=== PATIENT | male | born 1945 | race Caucasian/White ===

== ENCOUNTER 2017-01-30 14:42 | Emergency (ER) | payer OTHER ==
[~2017-01-30] VITALS: Ht 170.2 cm; Wt 92.0 kg
[2017-01-30 14:44] VITALS: BP 169/112; PULSE 87; RESP 16; TEMP 97.6; O2SAT 94
--- NOTE | 2017-01-30 14:50 | PD ---
Physical Exam Time Seen by Provider: 14:49 Narrative 71 y/o male presents with 2-3 weeks of left-sided headache, ear pain, eye pain, weakness. Vital signs reviewed. Seen at triage desk. Awaiting bed placement. Data Data Last Documented VS Vital Signs Date Time Temp Pulse Resp B/P Pulse Ox O2 Delivery O2 Flow Rate FiO2 01/30/17 14:44 97.6 87 16 169/112 94 MDM Medical Record Reviewed: Yes Supervised Visit with IMTIAZ: Rajeev Khoury Jan 30, 2017 14:50
[2017-01-30 16:13] VITALS: O2SAT 95
[2017-01-30] MEDS ORDERED: SODIUM CHLORIDE 0.9% FLUSH 10 ML FLUSH IV FLUSH PRN (16:15)
[2017-01-30] MEDS ORDERED: KETOROLAC TROMETHAMINE 30 MG/ML (IVP) VIAL IVP ONE (16:15)
[2017-01-30 16:35] LABS: AUTOMATED NEUTROPHIL # 7.8 TH/MM3 (1.8-7.7); BASOPHIL # 0.1 TH/MM3 (0-0.2); BASOPHIL % 0.6 % (0.0-2.0); EOSINOPHIL # 0.3 TH/MM3 (0-0.4); EOSINOPHIL % 2.5 % (0.0-4.0); HEMATOCRIT 41.3 % (39.0-51.0); LYMPH % 18.9 % (9.0-44.0); MEAN CELL VOLUME 81.6 FL (80.0-100.0); MEAN CORPUSCULAR HEMOGLOBIN 27.1 PG (27.0-34.0); MEAN CORPUSCULAR HGB CONC 33.3 % (32.0-36.0); MONO % 5.2 % (0.0-8.0); NEUT % 72.8 % (16.0-70.0); PLATELET COUNT 199 TH/MM3 (150-450); RED BLOOD COUNT 5.07 MIL/MM3 (4.50-5.90); RED CELL DISTRIBUTION WIDTH 24.5 % (11.6-17.2); WHITE BLOOD COUNT 10.8 TH/MM3 (4.0-11.0)
[2017-01-30 16:36] LABS: HEMO FLAGS AUTO DIFF
[2017-01-30] MEDS ORDERED: CIPRHC10A RIGHT EAR (16:57)
[2017-01-30] MEDS ORDERED: FERR324T PO (16:57)
[2017-01-30] MEDS ORDERED: OMEP20TA PO (16:57)
[2017-01-30] MEDS ORDERED: LISI-515 PO (16:57)
[2017-01-30] MEDS ORDERED: METF500T PO (16:57)
[2017-01-30] MEDS ORDERED: DOXY100C PO (16:57)
[2017-01-30] MEDS ORDERED: LUBR0.5D2 EACH EYE (16:57)
[2017-01-30] MEDS ORDERED: REST0.05 EACH EYE (16:57)
[2017-01-30] MEDS ORDERED: GABA300C5 PO (16:57)
[2017-01-30] MEDS ORDERED: HYDR-3516 PO (16:57)
[2017-01-30] MEDS ORDERED: ATOR40TA16 PO (16:57)
[2017-01-30] MEDS ORDERED: LISI40TA PO (16:57)
[2017-01-30] MEDS ORDERED: [UNRECOGNIZED DRUG - CODE] PO (16:57)
[2017-01-30] MEDS ORDERED: MOBI15TA PO (16:57)
[2017-01-30] MEDS ORDERED: GLIP10TA6 PO (16:57)
[2017-01-30] MEDS ORDERED: EYEL1PAD TOPICAL (16:57)
[2017-01-30] MEDS ORDERED: ASPI81CH CHEW (16:57)
[2017-01-30] MEDS ORDERED: METO25TA6 PO (16:57)
[2017-01-30 16:58] LABS: BICARBONATE 23.4 MEQ/L (21.0-32.0); MAGNESIUM 1.9 MG/DL (1.5-2.5); POTASSIUM 3.9 MEQ/L (3.5-5.1)
--- NOTE | 2017-01-30 16:59 | RADRPT ---
EXAM DATE/TIME: 01/30/2017 16:34 [facility] COMPARISON: No previous studies available for comparison. INDICATIONS : Patient complains of dizziness,headache, sinus pain. RADIATION DOSE: 56.35 CTDIvol (mGy) MEDICAL HISTORY : Cardiovascular disease. Diabetes mellitus type 1. SURGICAL HISTORY : CABG Cholecystectomy. ENCOUNTER: Initial ACUITY: 1 week PAIN SCALE: 5/10 LOCATION: cranial TECHNIQUE: Multiple contiguous axial images were obtained of the head. Using automated exposure control and adj ustment of the mA and/or kV according to patient size, radiation dose was kept as low as reasonably a chievable to obtain optimal diagnostic quality images. DICOM format image data is available electro nically for review and comparison. 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 There is patchy mild diminished attenuatio n in periventricular white matter which appears benign and likely microvascular ischemic. There is no evidence of intracranial mass or hemorrhage. There is nothing to suggest acute infarction. The extra cranial structures are benign and intact. CONCLUSION: No acute intracranial findings Yrn Payan MD on January 30, 2017 at 16:55 Board Certified Radiologist. This report was verified electronically.
--- NOTE | 2017-01-30 17:04 | PD ---
Data Data Last Documented VS Vital Signs Date Time Temp Pulse Resp B/P Pulse Ox O2 Delivery O2 Flow Rate FiO2 01/30/17 16:13 95 Room Air 01/30/17 14:44 97.6 87 16 169/112 Orders Electrocardiogram (01/30/17 14:54) Basic Metabolic Panel (Bmp) (01/30/17 14:54) Complete Blood Count With Diff (01/30/17 14:54) Magnesium (Mg) (01/30/17 14:54) Iv Access Insert/Monitor (01/30/17 16:01) Ecg Monitoring (01/30/17 16:01) Oximetry (01/30/17 16:01) Sodium Chloride 0.9% Flush (Ns Flush) (01/30/17 16:15) Ketorolac Inj (Toradol Inj) (01/30/17 16:15) Ct Sinuses W/O Iv Contrast (01/30/17 ) Ct Brain W/O Iv Contrast(Rout) (01/30/17 16:01) Labs Laboratory Tests Test 01/30/17 16:06 White Blood Count 10.8 TH/MM3 Red Blood Count 5.07 MIL/MM3 Hemoglobin 13.7 GM/DL Hematocrit 41.3 % Mean Corpuscular Volume 81.6 FL Mean Corpuscular Hemoglobin 27.1 PG Mean Corpuscular Hemoglobin 33.3 % Concent Red Cell Distribution Width 24.5 % Platelet Count 199 TH/MM3 Mean Platelet Volume 8.2 FL Neutrophils (%) (Auto) 72.8 % Lymphocytes (%) (Auto) 18.9 % Monocytes (%) (Auto) 5.2 % Eosinophils (%) (Auto) 2.5 % Basophils (%) (Auto) 0.6 % Neutrophils # (Auto) 7.8 TH/MM3 Lymphocytes # (Auto) 2.0 TH/MM3 Monocytes # (Auto) 0.6 TH/MM3 Eosinophils # (Auto) 0.3 TH/MM3 Basophils # (Auto) 0.1 TH/MM3 CBC Comment AUTO DIFF Sodium Level 137 MEQ/L Potassium Level 3.9 MEQ/L Chloride Level 105 MEQ/L Carbon Dioxide Level 23.4 MEQ/L Anion Gap 9 MEQ/L Blood Urea Nitrogen 23 MG/DL Creatinine 0.70 MG/DL Estimat Glomerular Filtration 111 ML/MIN Rate Random Glucose 116 MG/DL Calcium Level 9.0 MG/DL Magnesium Level 1.9 MG/DL MDM Supervised Visit with IMTIAZ: Yes Narrative Course I, Dr. King, have reviewed the advance practice practioner's documentation and am in agreement, met with the patient face to face, made the diagnosis, and the medical decision making was done by me. *My assessment and Findings: 71-year-old male with left-sided maxillary sinus pressure and fullness that radiates into the head with associated headache. History of similar episode 2 years ago diagnosed as sinusitis and resolve completely with antibiotic therapy. He does not have any tenderness to palpation in the temporal region. Pupils are equal and reactive and he does not have any ocular retro-ocular pain. He does have maxillary sinus pressure. Differential includes sinusitis, less likely intracranial mass lesion, glaucoma , temporal arteritis. Will obtain labs EKG and imaging if negative discharge home Desiree King MD Jan 30, 2017 17:04
[2017-01-30] MEDS ORDERED: FLUT1SPR5 EACH NARE (17:05)
[2017-01-30] MEDS ORDERED: AUGM875T3 PO (17:05)
--- NOTE | 2017-01-30 17:17 | RADRPT ---
EXAM DATE/TIME: 01/30/2017 16:34 [facility] COMPARISON: No previous studies available for comparison. INDICATIONS : Patient complains of dizziness,headache, sinus pain. RADIATION DOSE: 11.30 CTDIvol (mGy) MEDICAL HISTORY : Cardiovascular disease. Hypertension. SURGICAL HISTORY : CABG Cholecystectomy. ENCOUNTER: Initial ACUITY: 1 week PAIN SCORE: 5/10 LOCATION: cranial TECHNIQUE: Volumetric scanning of the paranasal sinuses was performed. Using automated exposure control and adj ustment of the mA and/or kV according to patient size, radiation dose was kept as low as reasonably a chievable to obtain optimal diagnostic quality images. DICOM format image data is available electro nically for review and comparison. FINDINGS: MAXILLARY SINUSES: Normal. No significant mucosal thickening or fluid. Infundibula are patent. No anomalous inferior orbital ethmoid (Joanne) air cells. ETHMOID SINUSES: Normal. No significant mucosal thickening or fluid. Fovea ethmoidal and lamina papyracea are symmet jihan and intact. SPHENOID SINUSES: Normal. No significant mucosal thickening or fluid. Sphenoethmoidal recesses are patent. No bony d ehiscence. FRONTAL SINUSES: Normal. No significant mucosal thickening or fluid. Frontal recesses are patent. No anomalous fron eileen air cells. NASAL FOSSA: Minimal rightward nasal septal deviation. No evidence of nasal cavity mass or obstruction.. No chayito bullosa or paradoxical turbinates are identified. OTHER: Normal. Limited views of the skull base and orbits are unremarkable. CONCLUSION: Negative Yrn Payan MD on January 30, 2017 at 17:04 Board Certified Radiologist. This report was verified electronically.
[2017-01-30 17:21] LABS: OVALOCYTES 1+ (NORMAL); SCAN/DIFF AUTO DIFF CONFIRMED
--- NOTE | 2017-01-30 17:32 | PD ---
HPI Chief Complaint: Cold / Flu Symptoms Time Seen by Provider: 15:20 Travel History International Travel<30 days: No Contact w/Intl Traveler<30days: No Traveled to known affect area: No History of Present Illness HPI 71-year-old male presents the emergency Department with left-sided headache, sinus pressure, congestion. Patient states similar symptoms couple of years ago treated with antibiotics with improvement. Patient denies states the headache and pressure is gotten worse over the past 24 hours. He has had some ear congestion especially in the left compared to the right. Normally goes to the [facility] for his medical care. Patient states he had difficulty sleeping last night secondary to the headache and pressure. He denies visual symptoms. He denies sore throat, postnasal drip, or significant cough. He has no other constitutional symptoms. He is allergic to tramadol. PFSH Past Medical History Cardiovascular Problems: Yes High Cholesterol: Yes Diabetes: Yes Patient Takes Glucophage: Yes Diminished Hearing: Yes (hearing aid ) Past Surgical History Cholecystectomy: Yes Coronary Artery Bypass Graft: Yes Tonsillectomy: Yes Social History Alcohol Use: No Tobacco Use: No Substance Use: No Allergies-Medications (Allergen,Severity, Reaction): Coded Allergies: Tramadol (Verified Allergy, Unknown, 01/30/17) Reported Meds & Prescriptions Reported Meds & Active Scripts Active Flonase Nasal [place] (Fluticasone Nasal [place]) 50 Mcg/Act [place] 100 Mcg EACH NARE BID Augmentin (Amoxicillin-Clavulanate) 875-125 Mg Tab 1 Tab PO BID Reported Omeprazole 20 Mg Tab 20 Mg PO HS [place] [employer] (Multivit with Iron-Minerals) 1 Each Tablet 1 Tab PO DAILY Metoprolol Succinate ER 24 HR (Metoprolol Succinate) 25 Mg Tab 25 Mg PO DAILY Metformin (Metformin HCl) 500 Mg Tab 500 Mg PO BIDPC With meals Mobic (Meloxicam) 15 Mg Tab 15 Mg PO DAILY Lisinopril 20 Mg Tab 20 Mg PO HS Lisinopril 40 Mg Tab 40 Mg PO DAILY Hydrocodone-Acetaminophen 5-325 mg Tab 1 Tab PO TID PRN Glipizide 10 Mg Tab 10 Mg PO BIDAC Take 30 minutes before a meal Gabapentin 300 Mg Cap 300 Mg PO BID Ferrous Gluconate 324 Mg Tab 324 Mg PO TID [employer]oft Eyelid Cleansing (Eyelid Cleansers) 1 Pad Pad 1 Pad TOPICAL BID Doxycycline Hyclate 100 Mg Cap 100 Mg PO BID Restasis Opth 0.05% (Cyclosporine Opth 0.05%) 0.05% Emul 1 Drop EACH EYE BID Cipro Hc Otic Drops (Ciprofloxacin/Hydrocortisone) 0.2-1% Susp 1 Drop RIGHT EAR TID Lubricant Opth Drops (Carboxymethylcellulose Sodium Opth Drops) 0.5% Drops 1 Drop EACH EYE QID Atorvastatin (Atorvastatin Calcium) 40 Mg Tab 40 Mg PO HS Aspirin 81 Mg Chew 81 Mg CHEW DAILY Review of Systems Except as stated in HPI: all other systems reviewed are Neg General / Constitutional: No: Fever Eyes: No: Diploplia, Blurred Vision, Photophobia, Drainage, Redness, Foreign Body Sensation, Pain, Tearing, Blind Spots, Visual changes, Blindness HENT: Positive: Headaches, Congestion, No: Vertigo, Lightheadedness, Sore Throat, Rhinitis, Rhinorrhea, Nosebleed, Neck Stiffness, Neck Pain, Masses, Gingival Bleeding, Dental Difficulties, Ear Discharge, Earache, Other Cardiovascular: No: Chest Pain or Discomfort Respiratory: No: Cough, Shortness of Breath Gastrointestinal: No: Nausea, Vomiting, Diarrhea, Abdominal Pain Genitourinary: No: Dysuria Musculoskeletal: No: Pain Skin: No Rash Neurologic: No: Weakness Psychiatric: No: Depression Endocrine: No: Polydipsia Hematologic/Lymphatic: No: Easy Bruising Physical Exam Narrative GENERAL: Patient appears in no acute distress. SKIN: Warm and dry. Normal color. Normal turgor. No rash. HEAD: Atraumatic. Normocephalic. EYES: Pupils equal and round. No scleral icterus. No injection or drainage. ENT: No nasal bleeding or discharge. Mucous membranes pink and moist. TMs are dull bilaterally. Patient has sinus pressure with palpation of the left maxillary and frontal sinuses. Pharynx is clear. No injection. NO OBVIOUS POSTNASAL DRIP NOTED. NECK: Trachea midline. Supple nontender. CARDIOVASCULAR: Regular rate and rhythm. RESPIRATORY: No accessory muscle use. Clear to auscultation. Breath sounds equal bilaterally. GASTROINTESTINAL: Abdomen soft, non-tender, nondistended. Hepatic and splenic margins not palpable. MUSCULOSKELETAL: Extremities without clubbing, cyanosis, or edema. No obvious deformities. NEUROLOGICAL: Awake and alert. No obvious cranial nerve deficits. Motor grossly within normal limits. Five out of 5 muscle strength in the arms and legs. Normal speech. PSYCHIATRIC: Appropriate mood and affect; insight and judgment normal. Data Data Last Documented VS Vital Signs Date Time Temp Pulse Resp B/P Pulse Ox O2 Delivery O2 Flow Rate FiO2 01/30/17 16:13 95 Room Air 01/30/17 14:44 97.6 87 16 169/112 Orders Electrocardiogram (01/30/17 14:54) Basic Metabolic Panel (Bmp) (01/30/17 14:54) Complete Blood Count With Diff (01/30/17 14:54) Magnesium (Mg) (01/30/17 14:54) Iv Access Insert/Monitor (01/30/17 16:01) Ecg Monitoring (01/30/17 16:01) Oximetry (01/30/17 16:01) Sodium Chloride 0.9% Flush (Ns Flush) (01/30/17 16:15) Ketorolac Inj (Toradol Inj) (01/30/17 16:15) Ct Sinuses W/O Iv Contrast (01/30/17 ) Ct Brain W/O Iv Contrast(Rout) (01/30/17 16:01) Labs Laboratory Tests Test 01/30/17 16:06 White Blood Count 10.8 TH/MM3 Red Blood Count 5.07 MIL/MM3 Hemoglobin 13.7 GM/DL Hematocrit 41.3 % Mean Corpuscular Volume 81.6 FL Mean Corpuscular Hemoglobin 27.1 PG Mean Corpuscular Hemoglobin 33.3 % Concent Red Cell Distribution Width 24.5 % Platelet Count 199 TH/MM3 Mean Platelet Volume 8.2 FL Neutrophils (%) (Auto) 72.8 % Lymphocytes (%) (Auto) 18.9 % Monocytes (%) (Auto) 5.2 % Eosinophils (%) (Auto) 2.5 % Basophils (%) (Auto) 0.6 % Neutrophils # (Auto) 7.8 TH/MM3 Lymphocytes # (Auto) 2.0 TH/MM3 Monocytes # (Auto) 0.6 TH/MM3 Eosinophils # (Auto) 0.3 TH/MM3 Basophils # (Auto) 0.1 TH/MM3 CBC Comment AUTO DIFF Differential Comment AUTO DIFF CONFIRMED Ovalocytes 1+ Sodium Level 137 MEQ/L Potassium Level 3.9 MEQ/L Chloride Level 105 MEQ/L Carbon Dioxide Level 23.4 MEQ/L Anion Gap 9 MEQ/L Blood Urea Nitrogen 23 MG/DL Creatinine 0.70 MG/DL Estimat Glomerular Filtration 111 ML/MIN Rate Random Glucose 116 MG/DL Calcium Level 9.0 MG/DL Magnesium Level 1.9 MG/DL MDM Medical Decision Making Medical Screen Exam Complete: Yes Emergency Medical Condition: Yes Medical Record Reviewed: Yes Differential Diagnosis Headache. Giant cell arteritis. Early shingles. Sinusitis. Narrative Course Patient is reviewed with Dr. Jeffers. CT of the head and sinuses are ordered. CT of the sinuses appears clear per radiologist, but based on the patient's symptoms are going to treat him with Augmentin 875 mg twice a day 10 days as well as Flonase 2 sprays each nostril daily. Patient can take Naprosyn as needed for headache, and continue his other meds as previous. [facility] Patient can return if worsening symptoms develop. Diagnosis Primary Impression: Sinusitis, acute maxillary Qualified Code: J01.00 - Acute maxillary sinusitis, recurrence not specified Referrals: [facility] Patient Instructions: General Instructions, Allergies (ED) Departure Forms: Tests/Procedures Additional Instructions: CT of the sinuses appears clear per radiologist, but based on the patient's symptoms are going to treat him with Augmentin 875 mg twice a day 10 days as well as Flonase 2 sprays each nostril daily. Patient can take Naprosyn as needed for headache, and continue his other meds as previous. [facility]. Patient can return if worsening symptoms develop. Med/Other Pt SpecificInfo: Prescription(s) given Scripts Fluticasone Nasal [place] (Flonase Nasal [place])50 Mcg/Act [id number] Mcg EACH NARE BID #1 BOTTLE Ref 0 Prov:Desiree King MD 01/30/17 Amoxicillin-Clavulanate (Augmentin)875-125 Mg Tab1 Tab PO BID #20 TAB Ref 0 Prov:Desiree King MD 01/30/17 Disposition: 01 DISCHARGE HOME Condition: Stable Lito Bernstein Jan 30, 2017 17:32
[2017-01-30] MEDS ORDERED: NAPROXEN 375 MG TAB PO ONE (17:45)
--- NOTE | 2017-01-30 17:52 | EKG ---
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
== END 2017-01-30 17:51 | disposition home or self-care (01) ==
LOC: NEPD 14:42
DX: J01.00 Acute maxillary sinusitis, unspecified (principal); R94.31 Abnormal electrocardiogram [ECG] [EKG]; E11.9 Type 2 diabetes mellitus without complications; E78.00 Pure hypercholesterolemia, unspecified; H91.90 Unspecified hearing loss, unspecified ear; Z79.84 Long term (current) use of oral hypoglycemic drugs; Z79.899 Other long term (current) drug therapy; Z86.79 Personal history of other diseases of the circulatory system
CPT/HCPCS: 70450; 70486; 80048; 83735; 85025; 93005; 96374; 99285; J1885